=== PATIENT | female | born 1950 | race Caucasian/White ===

== ENCOUNTER → 2016-05-19 | Outpatient (CLI) | payer MEDICARE, MEDICAID ==
[~2016-05-19] MED LIST: /CIPR75TA OR; /ESOM40CA OR; /INSUREG SUBQ; /TIOT18INH INH; ACTO15TA OR; ALBUTEROL OR; ALLE25CA OR; BIOFREEZE TOP; CRES20TA OR; DULCOLAX PO; INSULANT SC; PAIN325T OR; STOOL SOFTENER OR; SYMB80AE OR; VICO5TAB OR
--- NOTE | 2016-05-19 14:23 | REP ---
Chest CT without contrast: Low-dose lung cancer screening study. History: Chronic obstructive pulmonary disease. Tobacco use. Comparison chest x-ray May 18, 2015. No comparison chest CTs. Findings: There is a zone of mild linear fibrosis in the right lower lobe. No pleural effusion is seen. On image #41 of 99 in series 201 of today's study there is a low-density 6 mm nodular opacity without evidence of calcification. This will merit follow-up. There is a calcified granulomatous nodule in the right upper lobe anteriorly on image #40. There is a 3 mm nodule in the right upper lobe anteriorly on image #36 which is not visibly calcified. No other pulmonary nodule is appreciated. Impression: Positive low-dose screening lung CT study. 6 mm nodular opacity noted on the left apparently in the left lower lobe. Two other smaller densities are seen one of which is noncalcified as well. Follow-up chest CT recommended in 6 months. Signed by Vitor Fuentes MD 05/19/2016 04:26 P
== END ==
LOC: M RAD 11:13
PROVIDERS: ATTEND Internal Medicine Pulmonary Disease
DX: Z12.2 Encounter for screening for malignant neoplasm of respiratory organs (principal); J44.9 Chronic obstructive pulmonary disease, unspecified; F17.210 Nicotine dependence, cigarettes, uncomplicated; R91.8 Other nonspecific abnormal finding of lung field

== ENCOUNTER → 2016-10-12 | Outpatient (CLI) | payer MEDICARE, MEDICAID ==
--- NOTE | 2016-10-12 12:41 | REP ---
Follow-up chest CT without IV contrast: Comparison is the low-dose lung screening CT dated 05/19/2016. There is a 6 mm nodule posteriorly in the left upper lobe adjacent to the major fissure on image 49, unchanged from the comparison study. There is a 3 mm nodule in the right upper lobe on image 43, unchanged from the comparison study. There is a 4 mm Fabrica calcified granuloma in the right upper lobe on image 47, unchanged from the prior study. There are no new nodules or masses. There are no acute infiltrates or effusions. There is no mediastinal adenopathy. There is no axillary adenopathy. In the absence of IV contrast the study is insensitive for hilar adenopathy. The thoracic aorta is unremarkable except for occasional calcified atheroma. Cardiac size is normal. There is pericardial thickening versus pericardial effusion measuring 9 mm in depth. In the visualized upper abdomen there is a right adrenal nodule measuring [address] density of 33 HU. There is no left adrenal nodule. There are surgical clips in the gallbladder fossa. Impression: The patient's known lung nodules are stable and unchanged. This converts the study to a category 2 CT. Recommendation is for annual CT chest surveillance. However, there is a right adrenal 1.[address] density above 10 HU. Follow-up dedicated adrenal CT might be considered for evaluation of this nodule. Signed by Tarun Pritchard MD 10/12/2016 12:32 P
== END ==
LOC: M RAD 09:17
PROVIDERS: ATTEND Internal Medicine Pulmonary Disease
DX: R91.8 Other nonspecific abnormal finding of lung field (principal); E27.8 Other specified disorders of adrenal gland

== ENCOUNTER → 2017-10-24 | Outpatient (CLI) | payer MEDICARE, MEDICAID | LOC: M RAD 10:44 | DX: Z12.2 Encounter for screening for malignant neoplasm of respiratory organs (principal); R91.8 Other nonspecific abnormal finding of lung field; J44.9 Chronic obstructive pulmonary disease, unspecified; Z87.891 Personal history of nicotine dependence | CPT/HCPCS: G0297 ==

== ENCOUNTER → 2018-12-27 | Outpatient (CLI) | payer MEDICARE, MEDICAID ==
[~2018-12-27] MED LIST changes: -/ESOM40CA OR; -/INSUREG SUBQ; -/TIOT18INH INH; +CYCL5TAB PO; +KETO10TAB PO; +NEXI1CAP3 OR; +NOVO1INJ2 SUBQ; +SPIR1CAP INH
--- NOTE | 2018-12-27 11:04 | REPMRS ---
Patient History The patient states she has not had a clinical breast exam in over a year. Patient had first child at age 32. Family history of endometrial cancer at age 50 in sister, endometrial cancer at age 50 in sister, unknown cancer in sister, unknown cancer in brother, breast cancer in maternal aunt. Priors no longer available Patient states she has lost 100lbs in the last couple years, intentional Digital Mammo Diagnostic Bilateral: December 27, 2018 - Exam #: [id number] Bilateral CC and MLO view(s) were taken. Technologist: Augustina Johnson, Technologist Prior study comparison: January 11, 2010, right breast diagnostic unilateral mammo performed at [facility]. July 15, 2009, diagnostic bilateral mammo performed at [facility]. April 17, 2003, bilateral screening mammogram, performed at [facility]. FINDINGS: There are scattered fibroglandular densities. There has been no change in the appearance of the mammogram from the prior studies. There is a mild amount of scattered fibroglandular density which is fairly symmetric. There is no interval development of dominant mass, architectural distortion, or grouped microcalcification suggestive of malignancy. 3-D tomosynthesis shows no additional findings. Assessment: BI-RADS/ACR category 1 mammogram. Negative Mammogram. Recommendation Routine screening mammogram of both breasts in 1 year (for women over age 40). This patient's Lifetime Breast Cancer Risk is estimated at 10.5 %. This mammogram was interpreted with the aid of an FDA-approved computer-aided dectection system. Electronically Signed By: Dewey Fuentes MD 12/27/18 [id number]
== END ==
LOC: M RAD 10:10
PROVIDERS: ATTEND Obstetrics & Gynecology
DX: R92.8 Other abnormal and inconclusive findings on diagnostic imaging of breast (principal); Z80.3 Family history of malignant neoplasm of breast; Z80.49 Family history of malignant neoplasm of other genital organs
CPT/HCPCS: 77066; G0279

== ENCOUNTER → 2019-01-01 | Outpatient (REF) | payer MEDICARE, MEDICAID | LOC: M SFHCPLAZ 15:34 | PROVIDERS: ATTEND Family Medicine | DX: E11.42 Type 2 diabetes mellitus with diabetic polyneuropathy (principal); Z53.8 Procedure and treatment not carried out for other reasons ==

== ENCOUNTER → 2019-01-09 | Outpatient (CLI) | payer MEDICARE, MEDICAID ==
--- NOTE | 2019-01-09 13:46 | REP ---
Clinical: Lung screening. History smoking. Comparison: 05/19/2016 Technique: Axial low-dose noncontrast images from the thoracic inlet to the upper abdomen using lung screening technique. Findings: The lung jovel are well-aerated. No consolidation, significant nodule or mass lesion is appreciated. 5mm focal chronic scarring along the left major fissure. No pleural effusion/reaction or pneumothorax. Tracheobronchial tree is patent. Mediastinum demonstrates mild atherosclerotic changes of the coronary arteries without cardiomegaly. Impression: Lung-RADS category II. No significant nodule or suspicious abnormality. Electronically Signed by Sage Cruz MD 01/09/2019 01:38 P
== END ==
LOC: M RAD 13:30
PROVIDERS: ATTEND Nurse Practitioner Adult Health
DX: Z12.2 Encounter for screening for malignant neoplasm of respiratory organs (principal); Z86.018 Personal history of other benign neoplasm; Z87.891 Personal history of nicotine dependence

== ENCOUNTER → 2019-01-17 | Outpatient (CLI) | payer MEDICARE, MEDICAID ==
[2019-01-17 13:11] LABS: BLOOD UREA NITROGEN 13 MG/DL (7-18); CALCIUM LEVEL 9.5 MG/DL (8.8-10.2); CARBON DIOXIDE LEVEL 28 MEQ/L (21-32); CHLORIDE LEVEL 108 MEQ/L (98-107); CREATININE FOR GFR 0.57 MG/DL (0.55-1.30); GLOMERULAR FILTRATION RATE > 60.0 (>45); GLUCOSE, FASTING 144 MG/DL (70-100); POTASSIUM SERUM 4.3 MEQ/L (3.5-5.1); SODIUM LEVEL 142 MEQ/L (136-145)
== END ==
LOC: M LAB 11:34
PROVIDERS: ATTEND Obstetrics & Gynecology
DX: E11.42 Type 2 diabetes mellitus with diabetic polyneuropathy (principal)

== ENCOUNTER → 2019-01-22 | Outpatient (CLI) | payer MEDICARE, MEDICAID ==
[~2019-01-22] MED LIST changes: +COLA100C5 PO; +GABA-1171 PO; +HYDR-3719 PO; +INSUHUMDS; +INSULANT SQ; +PROHANCE 279.3MG/ML 15ML VIAL (A9576) As Ordered ONE; +ROSU20TA5 PO; +SIME1CHW5 PO; +SYMB16INH INH; +TIZA4TAB4 PO; +VENTAER INH
--- NOTE | 2019-01-22 16:09 | REP ---
MRI lumbar spine: 01/22/2019. Indication: Benign neoplasm of the bone. Comparison: None. Technique: Multiplanar short and long TR sequences of the lumbar spine were obtained including gadolinium images following the IV administration of 13 ml ProHance. Findings: There is very minimal anterolisthesis of L5 on S1. Disc dessication is present throughout. There is focal fatty marrow within the L3 vertebral body. Chronic appearing Schmorl's node is noted superiorly within L4. There is an incompletely evaluated T1 and T2 hyperintense lentiform intradural extramedullary lesion at the level of T11/T12 within the posterior spinal canal which measures 1.8 by 0.6 cm. There is surrounding pathologic gadolinium enhancement which may be reactive. There is minimal elevated T2 signal within the adjacent posterior cord which also may be reactive. No significant paraspinal soft tissue abnormalities are detected. L1/L2, L2/L3 and L3/L4: Diffuse disc and spur complexes are present predominately anteriorly with mild spinal canal and neural foraminal narrowing. L4/L5: Diffuse disc bulge and a tiny posterior central annular fissure are noted with bilateral facet arthropathy. There is moderate to severe right and moderate left recess narrowing. Moderate bilateral neural foraminal narrowing is present. L5/S1: Diffuse disc bulge and bilateral facet arthropathy are present without significant narrowing of the spinal canal. New new moderate bilateral neural foraminal narrowing is present. 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 The finding has been stable upon review of CT studies dating back to 2005. Multilevel degenerative sequelae of the lumbar spine as described without severe spinal canal or neural foraminal narrowing. Electronically Signed by Ren Kimble DO 01/22/2019 04:00 P
== END ==
LOC: M RAD 01-09 13:15
PROVIDERS: ATTEND Obstetrics & Gynecology
DX: Z86.018 Personal history of other benign neoplasm (principal)

== ENCOUNTER → 2019-03-15 | Outpatient (CLI) | payer MEDICARE, MEDICAID ==
[~2019-03-15] MED LIST changes: -PROHANCE 279.3MG/ML 15ML VIAL (A9576) As Ordered ONE
[2019-03-15 13:22] LABS: HEMOGLOBIN A1c 6.9 %
== END ==
LOC: M LAB 11:53
PROVIDERS: ATTEND Obstetrics & Gynecology
DX: E11.42 Type 2 diabetes mellitus with diabetic polyneuropathy (principal)
CPT/HCPCS: 36415; 83036; G0463

== ENCOUNTER 2019-03-27 11:07 | Day surgery (SDC) | payer MEDICARE, MEDICAID ==
[~2019-03-27] VITALS: Ht 154.9 cm; Wt 65.8 kg
[~2019-03-27 11:07] MED LIST changes: +NS 1,000 ML IV ONE
[2019-03-27] MEDS ORDERED: propofoL 500 MG/50 ML VIAL As Ordered ONE (12:42)
[2019-03-27] MEDS ORDERED: LIDOCAINE 2% INJ 100 MG/5 ML SDV (FOR ANES.) As Ordered ONE (12:42)
--- NOTE | 2019-03-27 13:10 | ROOR ---
Patient Name: Joseph German Procedure Date: 03/27/2019 12:37 PM Date of : 1950 Age: 69 Room: [facility] Gender: Female Note Status: Finalized Procedure: Colonoscopy Indications: High risk colon cancer surveillance: Personal history of colonic polyps Providers: Preston Ramirez MD Referring MD: Lisa Santana Do [employer] Provider: Medicines: Monitored Anesthesia Care Complications: No immediate complications. Procedure: Pre-Anesthesia Assessment: - Prior to the procedure, a History and Physical was performed, and patient medications and allergies were reviewed. The patient is competent. The risks and benefits of the procedure and the sedation options and risks were discussed with the patient. All questions were answered and informed consent was obtained. Patient identification and proposed procedure were verified by the physician, the nurse and the anesthesiologist in the endoscopy suite. Mental Status Examination: alert and oriented. Airway Examination: normal oropharyngeal airway and neck mobility. Respiratory Examination: clear to auscultation. CV Examination: normal. Prophylactic Antibiotics: The patient does not require prophylactic antibiotics. Prior Anticoagulants: The patient has taken no previous anticoagulant or antiplatelet agents. ASA Grade Assessment: III - A patient with severe systemic disease. After reviewing the risks and benefits, the patient was deemed in satisfactory condition to undergo the procedure. The anesthesia plan was to use monitored anesthesia care (MAC). Immediately prior to administration of medications, the patient was re-assessed for adequacy to receive sedatives. The heart rate, respiratory rate, oxygen saturations, blood pressure, adequacy of pulmonary ventilation, and response to care were monitored throughout the procedure. The physical status of the patient was re-assessed after the procedure. The Colonoscope was introduced through the anus and advanced to the cecum, identified by appendiceal orifice and ileocecal valve. The colonoscopy was performed without difficulty. The patient tolerated the procedure well. The quality of the bowel preparation was excellent. Findings: Hemorrhoids were found on perianal exam. Two flat polyps were found in the sigmoid colon and transverse colon. The polyps were 2 to 3 mm in size. These polyps were removed with a jumbo cold forceps. Resection and retrieval were complete. Estimated blood loss was minimal. A diffuse area of mild melanosis was found in the cecum. No additional abnormalities were found on retroflexion. Impression: - Hemorrhoids found on perianal exam. - Two 2 to 3 mm polyps in the sigmoid colon and in the transverse colon, removed with a jumbo cold forceps. Resected and retrieved. - Melanosis in the colon. Recommendation: - Discharge patient to home (ambulatory). - Repeat colonoscopy in 10 years for surveillance. Preston Ramirez MD Preston Ramirez MD 03/27/2019 1:10:04 PM Electronically signed by Preston Ramirez MD Number of Addenda: 0 Note Initiated On: 03/27/2019 12:37 PM Estimated Blood Loss: Estimated blood loss was minimal.
[2019-03-27 13:35] VITALS: BP 114/62
== END 2019-03-27 13:46 | disposition home or self-care (01) ==
LOC: M OPP 11:07
PROVIDERS: ATTEND Surgery
DX: Z12.11 Encounter for screening for malignant neoplasm of colon (principal); Z86.010 Personal history of colon polyps; K64.9 Unspecified hemorrhoids; D12.5 Benign neoplasm of sigmoid colon; D12.3 Benign neoplasm of transverse colon; K63.89 Other specified diseases of intestine; F17.210 Nicotine dependence, cigarettes, uncomplicated; Z79.4 Long term (current) use of insulin; Z79.891 Long term (current) use of opiate analgesic; Z79.899 Other long term (current) drug therapy; Z88.1 Allergy status to other antibiotic agents; Z88.2 Allergy status to sulfonamides; Z88.5 Allergy status to narcotic agent; Z91.040 Latex allergy status

== ENCOUNTER → 2019-04-16 | Outpatient (CLI) | payer MEDICARE, MEDICAID ==
[~2019-04-16] MED LIST changes: -NS 1,000 ML IV ONE
== END ==
LOC: M WHC 13:06
PROVIDERS: ATTEND Obstetrics & Gynecology
DX: Z13.820 Encounter for screening for osteoporosis (principal)

== ENCOUNTER → 2020-06-11 | Outpatient (CLI) | payer MEDICARE, MEDICAID ==
[2020-06-11 11:44] LABS: BASO # 0.1 10^3/uL (0.0-0.2); BASO % 0.9 % (0.0-1.0); EOS # 0.4 10^3/uL (0.0-0.5); EOS % 3.6 % (0.0-3.0); HEMATOCRIT 43.5 % (36.0-47.0); LYMPH # 3.2 10^3/uL (1.5-5.0); LYMPH % 30.8 % (24.0-44.0); MEAN CORPUSCULAR HEMOGLOBIN 31.3 pg (27.0-33.0); MEAN CORPUSCULAR HGB CONC 32.2 g/dl (32.0-36.5); MEAN CORPUSCULAR VOLUME 97.1 fl (80.0-96.0); MONO % 9.2 % (2.0-8.0); NEUTROPHILS # 5.7 10^3/uL (1.5-8.5); PLATELET COUNT, AUTOMATED 331 10^3/uL (150-450); RED BLOOD COUNT 4.48 10^6/uL (4.00-5.40); WHITE BLOOD COUNT 10.3 10^3/uL (4.0-10.0)
[2020-06-11 14:26] LABS: ALBUMIN 3.7 GM/DL (3.2-5.2); ALT/SGPT 17 U/L (12-78); BILIRUBIN,TOTAL 0.3 MG/DL (0.2-1.0); BLOOD UREA NITROGEN 11 MG/DL (7-18); CARBON DIOXIDE LEVEL 30 MEQ/L (21-32); CHLORIDE LEVEL 108 MEQ/L (98-107); CHOLESTEROL LEVEL 161 MG/DL (<200); CHOLESTEROL RISK RATIO 3.037 (<5); CREATININE FOR GFR 0.46 MG/DL (0.55-1.30); GLOMERULAR FILTRATION RATE > 60.0 (>45); GLUCOSE, FASTING 110 MG/DL (70-100); HDL CHOLESTEROL 53 MG/DL (>40); LDL CHOLESTEROL 77 MG/DL (<100); NON-HDL-C 108 MG/DL; POTASSIUM SERUM 3.7 MEQ/L (3.5-5.1); SODIUM LEVEL 141 MEQ/L (136-145); TOTAL PROTEIN 6.5 GM/DL (6.4-8.2); TRIGLYCERIDES LEVEL 156 MG/DL (<150)
[2020-06-11 14:30] LABS: TOTAL T3 147.5 NG/DL (60.0-181.0)
[2020-06-11 15:44] LABS: HEMOGLOBIN A1c 6.3 %
== END ==
LOC: M LAB 11:08
PROVIDERS: ATTEND Nurse Practitioner Family
DX: R03.0 Elevated blood-pressure reading, without diagnosis of hypertension (principal); E78.00 Pure hypercholesterolemia, unspecified; E11.9 Type 2 diabetes mellitus without complications

== ENCOUNTER → 2020-11-03 | Outpatient (CLI) | payer MEDICARE, MEDICAID ==
--- NOTE | 2020-11-03 15:10 | REP ---
INDICATION: COPD. COMPARISON: Multiple the latest 01/09/2019 TECHNIQUE: Axial noncontrast images from the thoracic inlet to the upper abdomen using low-dose lung screening technique (LDCT). As per the protocol only lung window images were sent to the read station for interpretation. FINDINGS: There are no new abnormal nodules, masses, or opacities. The area of thickening seen in the left major fissure is unchanged. There is an incidental calcified granuloma in the right upper lobe status quo. There is a minimal curvilinear density seen in the inferior right middle lobe. This is likely secondary to slight subsegmental atelectatic change. Grossly, the mediastinum and pulmonary chely are unchanged. Grossly, the imaged upper abdomen and imaged osseous structures are unchanged. IMPRESSION: Lung rads category 2 low-dose screening CT examination of the lungs. Follow-up as per the revised Fleischner society criteria. <Electronically signed by Westley Reese > 11/03/20 [id number]
== END ==
LOC: M RAD 14:25
PROVIDERS: ATTEND Internal Medicine Pulmonary Disease
DX: Z12.2 Encounter for screening for malignant neoplasm of respiratory organs (principal); J44.9 Chronic obstructive pulmonary disease, unspecified

== ENCOUNTER → 2020-12-15 | Outpatient (CLI) | payer MEDICARE, MEDICAID ==
[2020-12-15 16:11] LABS: BLOOD UREA NITROGEN 11 MG/DL (7-18); CPK CREATINE PHOSPHOKINASE 28 U/L (26-192); CREATININE FOR GFR 0.57 MG/DL (0.55-1.30); GLOMERULAR FILTRATION RATE > 60.0 (>45); TOTAL PROTEIN 6.9 GM/DL (6.4-8.2)
[2020-12-15 16:16] LABS: TOTAL 25(OH) VITAMIN D 8.5 NG/ML (30.0-100.0)
[2020-12-15 16:17] LABS: FOLATE 6.9 NG/ML; VITAMIN B12 LEVEL 249 PG/ML
== END ==
LOC: M LAB 12:15
PROVIDERS: ATTEND Psychiatry & Neurology Neurology
DX: G62.9 Polyneuropathy, unspecified (principal); Z79.899 Other long term (current) drug therapy

== ENCOUNTER → 2022-01-05 | Outpatient (CLI) | payer MEDICARE, MEDICAID ==
[~2022-01-05] MED LIST changes: +TIZA10TA PO; -TIZA4TAB4 PO
== END ==
LOC: M RAD 09:46
PROVIDERS: ATTEND Internal Medicine Pulmonary Disease
DX: Z12.2 Encounter for screening for malignant neoplasm of respiratory organs (principal); F17.210 Nicotine dependence, cigarettes, uncomplicated

== ENCOUNTER → 2022-01-27 | Outpatient (CLI) | payer MEDICARE, MEDICAID | LOC: M PLARAD 13:08 | PROVIDERS: ATTEND Psychiatry & Neurology Neurology | DX: M43.02 Spondylolysis, cervical region (principal); R41.3 Other amnesia ==

== ENCOUNTER → 2022-07-14 | Outpatient (CLI) | payer MEDICARE, MEDICAID | LOC: M LAB 10:31 | PROVIDERS: ATTEND Nurse Practitioner Family | DX: E53.8 Deficiency of other specified B group vitamins (principal) ==

== ENCOUNTER → 2023-05-03 | Outpatient (CLI) | payer OTHER, MEDICAID ==
[~2023-05-03] MED LIST changes: -ROSU20TA5 PO; +ROSU20TA61 PO
== END ==
LOC: M LAB 10:36
PROVIDERS: ATTEND Registered Nurse
DX: G89.29 Other chronic pain (principal)
CPT/HCPCS: 36415; 80307; G0480